=== PATIENT | female | born 1985 | race Caucasian/White ===

== ENCOUNTER 2017-04-17 09:39 | Emergency (ER) | payer BC ==
[2017-04-17 09:44] VITALS: BP 109/78; BMI 27.3
--- NOTE | 2017-04-17 10:50 | DR.GENAD ---
HPI - PCP Primary Care Physician: IN [place] - Complaint/Symptoms Chief Complaint Doctors Comments: History as stated. Denies nauses,vomiting, diarrhea or fever. 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 Chief Complaint:: PATIENT STATED THAT THE LAST 4 WEEKS SHE HAS NOT FELT HER BABY MOVE AND SHE STATED SHE HAS NO PHYSICAL GROWTH. LAST SONOGRAM WAS 5 WEEKS AGO WITH HER DOCTOR IN [place] - Source History Provided: Patient - Mode of Arrival Mode of Arrival: Ambulatory - Timing Onset of Chief Complaint: 03/27/17 PMH - PMH Past Medical History: No Past Surgical History: Yes Past Surgical History Comment: MISCARRIGE WITH A DNC - Family History History of Family Medical Conditions: No - Social History Does patient currently use any type of tobacco product: No Have you used tobacco products in the last 12 months: No Type of Tobacco Use: None Does any household member use tobacco: No Alcohol Use: None Do you use any recreational Drugs:: No Lives With: Family Lives Where: Home - infectious screening In the last 2 months have you had wt loss of >10#?: NO Have you had fever, night sweats or hemotysis?: No Have you traveled outside the country in the last 6 months?: No Isolation: Standard ROS - Review of Systems Constitutional: No Symptoms Reported Eyes: No Symptoms Reported ENTM: No Symptoms Reported Respiratoy: No Symptoms Reported Cardiovascular: No Symptoms Reported Gastrointestinal/Abdominal: No Symptoms Reported Genitourinary: No Symptoms Reported Neurological: No Symptoms Reported Musculoskeletal: No Symptoms Reported Integumentary: No Symptoms Reported Hematologic/Lymphatic: No Symptoms Reported Endocrine: No Symptoms Reported Psychiatric: No Symptoms Reported All Other Systems: Reviewed and Negative PE - Vital Signs Vitals: Temperature 98.9 F Pulse Rate 87 Respiratory Rate 18 Blood Pressure 109/78 O2 Sat by Pulse Oximetry 100 - General Limitations: No Limitations General Appearance: Alert, In No Apparent Distress - Head Head Exam: Normal Inspection, Atraumatic - Eyes Eye exam: Normal Appearance, PERRL, EOMI - ENT ENT Exam: Normal Exam External Ear Exam: Normal External Inspection TM/Canal Exam: Bilateral Normal Nose Exam: Normal Nose Exam Mouth Exam: Normal Inspection Throat Exam: Normal Inspection - Neck Neck Exam: Normal Inspection - Chest Chest Inspection: Normal Inspection - Respiratory Respiratory Exam: Normal Lung Sounds Bilat Respiratory Exam: Bilateral Clear to Auscultation - Cardiovascular Cardiovascular Exam: Regular Rate, Normal Rhythm - Abdominal Exam Abdominal Exam: Normal Inspection, Normal Bowel Sounds Abdominal Tenderness: negative: RUQ, RLQ, LUQ, LLQ, Epigastrium, Suprapubic, Diffuse, Mild, Moderate, Severe, Other - Neurologic Neurological Exam: Alert, Oriented X3, CN II-XII Intact - Psychiatric Psychiatric Exam: Normal Affect - Skin Skin Exam: Warm, Dry, Intact Course - Treatment Treatment: OB osverved monitor strip, U/S revealed active movement ROR - Labs Reviewed Laboratory Results Reviewed?: Yes (Quant HCG [id number]) Laboratory: HCG, Quant 18526 mIU/mL (0-6) H 04/17/17 10:11 - Diagnosis Discharge Problem: at early stage - Discharge Plan Condition: Stable - Follow ups/Referrals Follow ups/Referrals: N[facility],None [Primary Care Provider] - 3 days - Instructions
--- NOTE | 2017-04-17 11:10 | US ---
HISTORY: Baby not moving. Study: OB ultrasound greater than 14 weeks Comparison: None. Technique: Multiple grayscale and color flow Doppler images of the pelvis were obtained with focused evaluation of the fetus. Findings: LMP: December 23, 2016. GA by LMP: 16 weeks 3 days. MARI[place]A by LMP: September 29, 2017. AUA: 16 weeks 1 day. [place] by U.S.: October 01, 2017. A viable single intrauterine is identified with heart tones of 152 beats per minute. A cephalic presentation is observed with a anterior and fundal placenta. Normal amniotic fluid vo lume is observed. Evaluation of the anatomy including the stomach, kidneys, urinary bladder, a nd four-chamber heart are unremarkable. The extremities and spine are normal in their sonographic a ppearance. A three-vessel cord is observed. No intracranial abnormality can be identified. Value Estimated Gestational Age BPD 3.3 cm 16 weeks 2 days HC 12.2 cm 16 weeks 0 days AC 10.3 cm 16 weeks 2 days FL 2.1 cm 16 weeks 1 day IMPRESSION: A viable single intrauterine with concordant dates and an average ultrasound age of 16 wee ks 1 day correspond to an estimated date of delivery of October 01, 2017. No gross anatomical abnormalities can be identified. Reported By:
[2017-04-17 11:15] LABS: BILIRUBIN,URINE NEGATIVE (NEGATIVE); BLOOD/HEMOGLOBIN,URINE NEGATIVE (NEGATIVE); GLUCOSE, URINE NEGATIVE (NEGATIVE); KETONES,URINE NEGATIVE (NEGATIVE); LEUKOCYTE ESTERASE ,URINE 2+ (NEGATIVE); NITRITES,URINE NEGATIVE (NEGATIVE); PROTEIN,URINE NEGATIVE (NEGATIVE); UROBILINOGEN,URINE NORMAL (NORMAL)
[2017-04-17 11:49] LABS: APPEARANCE,URINE CLEAR (CLEAR); BACTERIA,URINE 1+ /HPF (NEGATIVE); COLOR,URINE YELLOW (YELLOW); RBC,URINE NONE SEEN /HPF (NEGATIVE); SQUAMOUS EPITHELIAL CELL,UR FEW /HPF (NEGATIVE)
== END 2017-04-17 11:35 | disposition home or self-care (01) ==
LOC: ER 09:56
DX: O36.8191 Decreased fetal movements, unspecified trimester, fetus 1 (principal); Z3A.16 16 weeks gestation of pregnancy
CPT/HCPCS: 36415; 76815; 81001; 84702; 99284